=== PATIENT | male | born 1975 | race African-American/Black ===

== ENCOUNTER → 2016-12-17 | Day surgery (SDC) | payer OTHER ==
[2016-12-13 13:13] VITALS: BMI 33.5
[~2016-12-17] MED LIST: LACTATED RINGERS SOLUTION 1,000 ML IV SCH; LEVOFLOXACIN 500 MG PREMIX BAG IVPB ONE; ONDANSETRON 4 MG/2 ML VIAL IVPUSH PRN; PROMETHAZINE HCL 25 MG/1 ML VIAL IVPUSH PRN; oxyCODONE HCL 5 MG TABLET PO PRN
--- NOTE | 2016-12-17 15:55 | OP ---
Operative Note - Note: Operative Date: 12/17/16 Pre-Operative Diagnosis: bilateral urolithiasis/gross hematuria Operation: cystoscopy/bilateral retrograde pyelogram/left ureteroscopic laser lithotripsy/left ureteroscopic stone basketing/left ureteral stent placement Findings: no evidence of right ureteral obstructing stones/2 left ureteral stones each measuring >6mm with proximal hydroureteronephrosis Post-Operative Diagnosis: Other (left hydroureteronephrosis with multiple ureteral stones) Surgeon: Mauro Soto Anesthesia: General Specimens Removed: ureteral stones Drains & Tubes with Location: 6 fr/26 cm left ureteral stent
[2016-12-17 16:58] VITALS: TEMP 98
[2016-12-17 18:56] VITALS: BP 139/75; PULSE 47
--- NOTE | 2016-12-18 14:26 | OP ---
DATE OF OPERATION: 12/17/2016 PREOPERATIVE DIAGNOSIS: Bilateral urolithiasis with gross hematuria. POSTOPERATIVE DIAGNOSIS: Bilateral urolithiasis with gross hematuria, with right distal obstructing ureteral stones. PROCEDURE: Cystoscopy, bilateral retrograde pyelogram, left ureteroscopic laser lithotripsy, left ureteroscopic stone basketing, and left ureteral stent placement. ATTENDING: Lakia iXao MD ANESTHESIA: General. DESCRIPTION OF OPERATION: Patient was brought in the operating room, placed in supine position on the operating room table. General anesthesia and preoperative antibiotics were given. The patient was then placed in the dorsal lithotomy position and prepped and draped in the usual sterile manner. Cystoscopy was performed. No evidence of neoplasm within the bladder was noted. An open-ended catheter was utilized, and a right retrograde pyelogram was performed. No evidence of ureteral stones or obstruction of the right kidney was noted. At this point, attempts at intubating the left ureteral orifices were unsuccessful due to a calcified density in the distal left ureter. Ureteroscopy was performed, and a wire was passed proximally with difficulty. At this point, a holmium laser was utilized, and lithotripsy of the distal ureteral stones was performed. The stones each measured 6 mm. There were 2 such stones. Once lithotripsy utilizing the holmium laser was completed, an ureteroscopic stone basketing with multiple stone fragments was performed. All these specimens were sent to Pathology for analysis. A retrograde pyelogram was then performed, and no evidence of further obstruction or filling defects within the ureter was noted. Ureteroscopy was done to the level of the renal pelvis. No evidence of neoplasm was noted. At this point, the ureteroscope was removed. A 6-[place] 26-cm left ureteral stent was placed utilizing the Seldinger technique. No complications were noted. The patient tolerated the procedure very well. LAKIA XIAO M.D. /[id number]
--- NOTE | 2016-12-20 10:20 | PATH ---
Surgical Pathology Report Patient Name: MELVINA CONTRERAS [facility]. Rec. #: [id number] /Age/Gender: 1975 (Age: 41) / M Account: [id number] Location: [facility] SURGICAL Taken: 12/17/2016 Received: 12/18/2016 Reported: 12/20/2016 Physicians: Mauro Soto Specimen(s) Received LEFT URETERAL STONE Clinical History Bilateral kidney stones Final Diagnosis LEFT URETERAL STONE, EXTRACTION: CALCULI SUBMITTED FOR CHEMICAL ANALYSIS (gross only). Electronically Signed William Cagle M.D. Gross Description Received fresh labeled "left ureteral stone," is a 1.0 x 0.7 x 0.3 cm aggregate of nunez-brown, irregular to fragmented calculi. The specimen is sent for chemical analysis. 12/18/201612/18/2016
== END | disposition home or self-care (01) ==
LOC: JASU-SURG 09:43
PROVIDERS: ATTEND Urology
PROC: 0T778DZ Dilation of Left Ureter with Intraluminal Device, Via Natural or Artificial Opening Endoscopic (ICD-10-PCS; 2016-12-17)
PROC: 0TF78ZZ Fragmentation in Left Ureter, Via Natural or Artificial Opening Endoscopic (ICD-10-PCS; principal; 2016-12-17 11:00)
DX: N13.2 Hydronephrosis with renal and ureteral calculous obstruction (principal); R31.0 Gross hematuria
CPT/HCPCS: 36415; 76000-TC; 82360; 88300-TC; 94760

== ENCOUNTER 2017-01-21 13:21 | Day surgery (SDC) | payer OTHER ==
[2017-01-11 16:42] VITALS: BMI 32.2
[~2017-01-21 13:21] MED LIST changes: -LEVOFLOXACIN 500 MG PREMIX BAG IVPB ONE; -PROMETHAZINE HCL 25 MG/1 ML VIAL IVPUSH PRN
[2017-01-21] MEDS ORDERED: MIDAZOLAM HCL 2 MG/2 ML SINGLE DOSE VIAL ONE (14:18)
[2017-01-21] MEDS ORDERED: LEVOFLOXACIN 500 MG PREMIX BAG IVPB ONE ×2 (14:20→14:23)
[2017-01-21] MEDS ORDERED: LIDOCAINE HCL/PF 2% SDV 5ML VIAL ONE (14:48)
[2017-01-21 15:39] VITALS: TEMP 98
--- NOTE | 2017-01-21 15:47 | OP ---
Operative Note - Note: Operative Date: 01/21/17 Pre-Operative Diagnosis: right renal stone Operation: right eswl Findings: right 7 mm mid pole renal stone Post-Operative Diagnosis: Same as Pre-op Anesthesia: Fractional
[2017-01-21 17:05] VITALS: BP 144/69; PULSE 68
--- NOTE | 2017-01-21 22:39 | OP ---
DATE OF OPERATION: 01/21/2017 PREOPERATIVE DIAGNOSIS: Right renal stone. POSTOPERATIVE DIAGNOSIS: Right renal stone. PROCEDURE: Right extracorporeal shock wave lithotripsy. ATTENDING: Lakia Xiao MD ANESTHESIA: Fractional. DESCRIPTION OF OPERATION: Patient was brought in the operating room and placed in a supine position on the operating room table. Ultrasonography and fluoroscopy were performed. A 7-mm right mid-pole stone was identified. At this point, anesthesia and preoperative antibiotics were administered. The patient had extracorporeal shock wave lithotripsy then performed; 2500 impulses at 17 joules of power were administered to the stone. Excellent fragmentation was noted. No complications were noted. The disposition of the patient was to the recovery room. LAKIA XIAO M.D. [id number]
== END 2017-01-21 17:05 | disposition home or self-care (01) ==
LOC: JASU-SURG 13:21
PROVIDERS: ATTEND Urology
PROC: 0TF3XZZ Fragmentation in Right Kidney Pelvis, External Approach (ICD-10-PCS; principal; 2017-01-21 15:30)
DX: N20.0 Calculus of kidney (principal)
CPT/HCPCS: 94760

== ENCOUNTER 2017-02-04 10:53 | Day surgery (SDC) | payer OTHER ==
[2017-02-01 11:51] VITALS: BMI 32.2
[~2017-02-04 10:53] MED LIST changes: +LEVOFLOXACIN 500 MG PREMIX BAG IVPB ONE
[2017-02-04] MEDS ORDERED: LEVOFLOXACIN 500 MG PREMIX BAG IVPB ONE ×2 (10:58→12:22)
[2017-02-04 13:22] VITALS: TEMP 98.6
[2017-02-04 14:36] VITALS: BP 138/77; PULSE 57
--- NOTE | 2017-02-04 15:15 | OP ---
Operative Note - Note: Operative Date: 02/04/17 Pre-Operative Diagnosis: left mid pole 8 mm x 6 mm renal stone Operation: left eswl Post-Operative Diagnosis: Same as Pre-op Anesthesia: Fractional
== END 2017-02-04 14:36 | disposition home or self-care (01) ==
LOC: JASU-SURG 10:53
PROVIDERS: ATTEND Urology
PROC: 0TF4XZZ Fragmentation in Left Kidney Pelvis, External Approach (ICD-10-PCS; principal; 2017-02-04 12:30)
DX: N20.0 Calculus of kidney (principal)